=== PATIENT | male | born 1955 | race Caucasian/White ===

== ENCOUNTER 2024-08-17 08:24 | Emergency (ER) | payer BC, SELFPAY ==
[2024-08-17 08:27] VITALS: BP 129/94
--- NOTE | 2024-08-17 09:12 | ED.GENMED ---
History of Present Illness
General
Chief Complaint: Cold/Flu/URI Symptoms
Time Seen by Provider: 08/17/24 08:49
History of Present Illness
History of Present Illness:
68-year-old male presents the emergency department for evaluation of weakness and fatigue. He states he developed flulike symptoms 1 week ago, was seen the following day by his PCP and placed on azithromycin. He reports no improvement of his
symptoms. Has had some diarrhea in the past 48 hours. No chest pain or shortness of breath at this time. Feels weak and is requesting IV fluids
Past History
Past History
ED Past Medical History: HTN and Psychiatric
ED Past Surgical History: Cholecystectomy and Orthopedic (Knee arthroscopy)
Social History
Tobacco: Smoker
Alcohol: Daily (stopped 2 weeks ago)
Drug: None (Anxiety)
Personal:
Living: with family
Employment: Employed
Family History
Family History: Hypertension
Review of Systems
Review of Systems
Allergies reviewed?: Yes
All Other Systems: ROS reviewed and negative except as documented in HPI and ROS
Phy Exam
Physical Exam
Physical Exam:
GEN: Well appearing, NAD, WDWN
HEENT: Oral mucosa moist, no scleral icterus, TMs clear bilaterally erythema, oropharynx pink and moist with no erythema
Cardiac: Regular rate and rhythm, no murmurs
Lung: No respiratory distress, no tachypnea, Lungs clear to auscultation bilaterally
MSK: No gross deformity or injuries
Skin: Good color, no pallor or jaundice, no rashes
Neuro: AO x3, moves all extremities freely
Psych: Calm, cooperative
Course
Orders/Labs/Results
Orders:
Orders
08/17/24 09:12
0.9% Sodium Chloride 1000 ml [Nss] 1,000 ml IV BOLUS
08/17/24 09:26
Basic Metabolic Panel Urgent
Complete Blood Count/No Diff Urgent
Abnormal Lab Results
08/17/24
09:26
RBC 4.61 L 10^6/uL
(4.70-6.10)
MCH 31.7 H pg
(27.0-31.0)
Sodium 134 L mmol/L
(135-145)
Chloride 96 L mmol/L
(98-107)
Glucose 120 H mg/dl
(70-99)
08/17/24 09:26
08/17/24 09:26
Vital Signs
Initial and Last Documented VS:
Initial Vital Signs
Temp Pulse Resp BP Pulse Ox
97.5 F 83 18 129/94 97
08/17/24 08:27 08/17/24 08:27 08/17/24 08:27 08/17/24 08:27 08/17/24 08:27
Last Documented Vital Signs
Temp Pulse Resp BP Pulse Ox
97.5 F 81 16 131/89 97
08/17/24 08:27 08/17/24 11:09 08/17/24 11:09 08/17/24 11:09 08/17/24 11:09
MDM/Problems Addressed
MDM/Problems Addressed:
Labs normal, likely mild dehydration in the setting of viral syndrome plus GI losses from diarrhea. Discharged in stable condition
*Critical Care Note
Total Time (30-74mins, 75-104mins- exclusive of procedures): Not Applicable
ED Attending Note
-
Portions of this chart may have been created with voice recognition software.� Occasional wrong word or��sound alike� substitutions may have occurred due to the inherent limitations of voice recognition software.
Discharge Plan
Departure
Patient Disposition: Home (Routine Discharge)
Date of Disposition: 08/17/24
Time of Disposition: 09:56
Patient with high blood pressure during this ER visit?: No
Discharge Problem:
Dehydration
Instructions: Dehydration in adults - ED discharge instructions
Prescriptions:
No Action
hydroxyzine pamoate [Vistaril] 50 MG capsule
50 mg PO BIDPRN PRN (Reason: anxiety)
chlordiazepoxide HCl 10 MG capsule
10 mg PO DAILY@1500
alum-mag hydroxide-simeth [Mag-Al Plus] 30 ML suspension
30 ml PO QIDPRN PRN (Reason: gerd)
losartan-hydrochlorothiazide 1 EACH tablet
1 tab PO DAILY@1600
oxycodone 5 MG tablet
5 mg PO Q6HPRN PRN (Reason: severe pain ) Qty: 3 0RF
Referrals:
Delta Sales MD [Family Provider] -
Interventions
Interventions:
*Risk Screen - Suicide Last Done: 08/17/24 09:33
*General Assessment Last Done: 08/17/24 09:33
*Neglect/Abuse Screening Last Done: 08/17/24 09:33
*ED- Fall Risk Assessment Last Done: 08/17/24 09:33
*ED COVID-19 Vaccine History Last Done: 08/17/24 09:33
*Nursing Disposition Last Done: 08/17/24 11:09
ED- Pulmonary Assessment Last Done: 08/17/24 09:33
Discharge Date and Time
Discharge Date/Time: 08/17/24 11:12
Print Language: GREEK
[2024-08-17] MEDS: NSS 1000 IV (09:27)
[2024-08-17 09:38] LABS: Hematocrit 40.8 % (39.0-52.0); Hemoglobin 14.6 g/dL (13.0-18.0); Mean Corp Hgb Conc. 35.8 g/dL (33.0-37.0); Mean Corpuscular Hgb 31.7 pg (27.0-31.0); Mean Corpuscular Volume 88.5 fL (80.0-94.0); Mean Platelet Volume 8.6 fL (7.4-10.4); Platelet Count 263 10^3/uL (130-400); Red Blood Cell Count 4.61 10^6/uL (4.70-6.10); Red Cell Dist. Width 12.5 % (11.5-14.5); White Blood Cell Count 5.9 10^3/uL (4.8-10.8)
[2024-08-17 09:44] LABS: Blood Urea Nitrogen 9 mg/dl (9-20); Calcium 8.7 mg/dl (8.4-10.2); Carbon Dioxide 27 mmol/L (22-30); Chloride 96 mmol/L (98-107); Glucose 120 mg/dl (70-99); Potassium 3.7 mmol/L (3.5-5.1); Sodium 134 mmol/L (135-145); eGFR > 60.00
[2024-08-17 11:09] VITALS: BP 131/89
== END 2024-08-17 11:12 | disposition home or self-care (01) ==
LOC: EMR 08:24
PROVIDERS: Physician Assistant; EMERGENCY PHYSICIAN Emergency Medicine; FAMILY PHYSICIAN Internal Medicine
DX: E86.0 Dehydration (principal); I10 Essential (primary) hypertension; Z90.49 Acquired absence of other specified parts of digestive tract; F17.200 Nicotine dependence, unspecified, uncomplicated
CPT/HCPCS: 96360; 99284; 80048; 85027